=== PATIENT | male | born 1980 | race Caucasian/White ===

== ENCOUNTER → 2016-10-21 | Outpatient (REF) | payer OTHER ==
[2016-10-21 11:21] LABS: BASO % 0.5 % (0.0-1.0); EOS # 0.2 K/mm3 (0.0-0.50); EOS % 2.9 % (0.0-3.0); LARGE UNSTAINED CELL # 0.1 K/mm3 (0.0-0.4); LARGE UNSTAINED CELL % 1.3 % (0.0-4.0); LYMPH # 1.8 K/mm3 (1.5-4.5); LYMPH % 21.7 % (24.0-44.0); MEAN CORPUSCULAR HEMOGLOBIN 31.4 pg (27.0-33.0); MEAN CORPUSCULAR VOLUME 92.3 fl (80.0-96.0); MONO # 0.4 K/mm3 (0.0-0.8); MONO % 5.2 % (0.0-5.0); NEUTROPHILS # 5.4 K/mm3 (1.8-7.7); NEUTROPHILS % 68.4 % (36.0-66.0); PLATELET COUNT, AUTOMATED 247 k/mm3 (150-450); RED CELL DISTRIBUTION WIDTH 12.1 % (11.5-14.5); WHITE BLOOD COUNT 7.9 K/mm3 (4.0-10.0)
[2016-10-21 12:02] LABS: ALBUMIN 4.1 GM/DL (3.2-5.2); ALBUMIN/GLOBULIN RATIO 1.21 (1.00-1.93); ALKALINE PHOSPHATASE 83 U/L (45-117); ALT/SGPT 79 U/L (12-78); ANION GAP 8 MEQ/L (8-16); AST/SGOT 32 U/L (15-37); BILIRUBIN,TOTAL 0.6 MG/DL (0.2-1.0); BLOOD UREA NITROGEN 14 MG/DL (7-18); CALCIUM LEVEL 9.3 MG/DL (8.5-10.1); CARBON DIOXIDE LEVEL 26 MEQ/L (21-32); CHLORIDE LEVEL 103 MEQ/L (98-107); CHOLESTEROL LEVEL 238 MG/DL (<200); CREATININE FOR GFR 0.93 MG/DL (0.70-1.30); FREE T4 1.13 NG/DL (0.76-1.46); GLOMERULAR FILTRATION RATE > 60.0 (>60); GLUCOSE, FASTING 91 MG/DL (70-105); POTASSIUM SERUM 4.4 MEQ/L (3.5-5.1); SODIUM LEVEL 137 MEQ/L (136-145); TOTAL PROTEIN 7.5 GM/DL (6.4-8.2); TRIGLYCERIDES LEVEL 373 MG/DL (<150)
== END ==
LOC: M SFHCPLAZ 07:56
PROVIDERS: ATTEND Physician Assistant Medical
DX: I10 Essential (primary) hypertension (principal); E78.5 Hyperlipidemia, unspecified; E55.9 Vitamin D deficiency, unspecified

== ENCOUNTER 2017-03-21 12:41 | Emergency (ER) | payer OTHER ==
[~2017-03-21] VITALS: Ht 190.5 cm; Wt 118.2 kg
[2017-03-21] MEDS ORDERED: LISI40TAB PO (12:52)
[2017-03-21] MEDS ORDERED: VITA1CAP40 (12:52)
[2017-03-21] MEDS ORDERED: LIDOCAINE W/EPINEPHRINE 1% 20ML VIAL As Ordered ONE (12:59)
[2017-03-21] MEDS ORDERED: LIDOCAINE W/EPINEPHRINE 1% 20ML VIAL SC ONE (13:15)
[2017-03-21 14:10] VITALS: BP 157/79
== END 2017-03-21 14:11 | disposition home or self-care (01) ==
LOC: M ED 12:41
DX: S71.029A Laceration with foreign body, unspecified hip, initial encounter (principal); W22.8XXA Striking against or struck by other objects, initial encounter; Y92.019 Unspecified place in single-family (private) house as the place of occurrence of the external cause; Y93.89 Activity, other specified; Y99.8 Other external cause status; I10 Essential (primary) hypertension; E66.9 Obesity, unspecified; K70.0 Alcoholic fatty liver; Z79.899 Other long term (current) drug therapy

== ENCOUNTER → 2017-11-17 | Outpatient (REF) | payer OTHER ==
[2017-11-17 12:00] LABS: PTH INTACT 51.4 PG/ML (18.5-88.0); TOTAL 25(OH) VITAMIN D 31.7 NG/ML (30.0-100.0)
[2017-11-17 12:16] LABS: ALBUMIN 4.1 GM/DL (3.2-5.2); ALBUMIN/GLOBULIN RATIO 1.17 (1.00-1.93); ALKALINE PHOSPHATASE 73 U/L (45-117); ALT/SGPT 66 U/L (12-78); ANION GAP 7 MEQ/L (8-16); AST/SGOT 25 U/L (7-37); BILIRUBIN,TOTAL 0.5 MG/DL (0.2-1.0); BLOOD UREA NITROGEN 12 MG/DL (7-18); CALCIUM LEVEL 9.1 MG/DL (8.5-10.1); CARBON DIOXIDE LEVEL 27 MEQ/L (21-32); CHLORIDE LEVEL 106 MEQ/L (98-107); CHOLESTEROL LEVEL 235 MG/DL (<200); CHOLESTEROL RISK RATIO 6.527 (<5); CPK CREATINE PHOSPHOKINASE 163 U/L (39-308); CREATININE FOR GFR 0.87 MG/DL (0.70-1.30); FREE T4 1.02 NG/DL (0.76-1.46); GLOMERULAR FILTRATION RATE > 60.0 (>60); GLUCOSE, FASTING 85 MG/DL (70-100); HDL CHOLESTEROL 36 MG/DL (>40); LDL CHOLESTEROL 146.8 MG/DL (<100); NON-HDL-C 199 MG/DL; POTASSIUM SERUM 4.4 MEQ/L (3.5-5.1); SODIUM LEVEL 140 MEQ/L (136-145); THYROID STIMULATING HORMONE 0.882 uIU/ML (0.358-3.740); TOTAL PROTEIN 7.6 GM/DL (6.4-8.2); TRIGLYCERIDES LEVEL 261 MG/DL (<150)
== END ==
LOC: M SFHCPLAZ 09:06
DX: E55.9 Vitamin D deficiency, unspecified (principal); I10 Essential (primary) hypertension; E78.5 Hyperlipidemia, unspecified; E66.9 Obesity, unspecified
CPT/HCPCS: 82550

== ENCOUNTER → 2018-04-26 | Outpatient (REF) | payer OTHER ==
[2018-04-26 13:16] LABS: APPEARANCE, URINE CLEAR (CLEAR); BACTERIA, URINE AUTO NEGATIVE (NEGATIVE); BILIRUBIN, URINE AUTO NEGATIVE (NEGATIVE); BLOOD, URINE BLOOD NEGATIVE (NEGATIVE); COLOR, URINE YELLOW (YELLOW); GLUCOSE, URINE (UA) AUTO NEGATIVE (NEGATIVE); KETONE, URINE AUTO NEGATIVE (NEGATIVE); LEUKOCYTE ESTERASE, URINE AUTO 1+ (NEGATIVE); MUCUS, URINE SMALL (NEGATIVE); NITRITE, URINE AUTO NEGATIVE (NEGATIVE); PROTEIN, URINE AUTO NEGATIVE (NEGATIVE); RBC, URINE AUTO 0 /HPF (0-3); SQUAMOUS EPITHELIAL CELL UR AU 0 /HPF (0-6); UROBILINOGEN, URINE AUTO 0.2 mg/dL (0.0-2.0); WBC, URINE AUTO 3 /HPF (0-3)
[2018-04-26 13:42] LABS: MALB URINE SIEMENS 15.7 MG/L
[2018-04-26 13:46] LABS: ESTIMATED AVERAGE GLUCOSE 108 MG/DL (60-110); HEMOGLOBIN A1c 5.4 %; MAU/CREAT RATIO 7.9 MCG/MG (0.0-30.0)
[2018-04-26 13:50] LABS: ALBUMIN 3.9 GM/DL (3.2-5.2); ALBUMIN/GLOBULIN RATIO 1.18 (1.00-1.93); ALKALINE PHOSPHATASE 86 U/L (45-117); ALT/SGPT 60 U/L (12-78); ANION GAP 11 MEQ/L (8-16); AST/SGOT 28 U/L (7-37); BILIRUBIN,TOTAL 0.7 MG/DL (0.2-1.0); BLOOD UREA NITROGEN 16 MG/DL (7-18); C REACTIVE PROTEIN QUANTITATIV < 0.30 MG/DL (0.00-0.30); CALCIUM LEVEL 9.1 MG/DL (8.5-10.1); CARBON DIOXIDE LEVEL 24 MEQ/L (21-32); CHLORIDE LEVEL 104 MEQ/L (98-107); CHOLESTEROL LEVEL 235 MG/DL (<200); CHOLESTEROL RISK RATIO 6.184 (<5); CPK CREATINE PHOSPHOKINASE 243 U/L (39-308); GLOMERULAR FILTRATION RATE > 60.0 (>60); GLUCOSE, FASTING 92 MG/DL (70-100); HDL CHOLESTEROL 38 MG/DL (>40); LDL CHOLESTEROL 120 MG/DL (<100); NON-HDL-C 197 MG/DL; POTASSIUM SERUM 4.3 MEQ/L (3.5-5.1); SODIUM LEVEL 139 MEQ/L (136-145); TOTAL PROTEIN 7.2 GM/DL (6.4-8.2); TRIGLYCERIDES LEVEL 384 MG/DL (<150)
[2018-04-28 15:03] LABS: INSULIN LEVEL 14.9 uIU/mL (2.6-24.9)
== END ==
LOC: M SFHCPLAZ 08:22
DX: E78.5 Hyperlipidemia, unspecified (principal); R73.01 Impaired fasting glucose

== ENCOUNTER → 2018-12-08 | Outpatient (REF) | payer OTHER ==
[~2018-12-08] MED LIST: LISI40TA PO; VITA50005
[2018-12-08 12:42] LABS: ALBUMIN 3.8 GM/DL (3.2-5.2); ALT/SGPT 60 U/L (12-78); BILIRUBIN,TOTAL 0.6 MG/DL (0.2-1.0); BLOOD UREA NITROGEN 9 MG/DL (7-18); CARBON DIOXIDE LEVEL 27 MEQ/L (21-32); CHLORIDE LEVEL 104 MEQ/L (98-107); CHOLESTEROL LEVEL 167 MG/DL (<200); CHOLESTEROL RISK RATIO 4.282 (<5); CREATININE FOR GFR 0.84 MG/DL (0.70-1.30); GLOMERULAR FILTRATION RATE > 60.0 (>60); GLUCOSE, FASTING 89 MG/DL (70-100); HDL CHOLESTEROL 39 MG/DL (>40); LDL CHOLESTEROL 59 MG/DL (<100); NON-HDL-C 128 MG/DL; POTASSIUM SERUM 4.3 MEQ/L (3.5-5.1); SODIUM LEVEL 140 MEQ/L (136-145); TOTAL PROTEIN 7.3 GM/DL (6.4-8.2); TRIGLYCERIDES LEVEL 347 MG/DL (<150)
[2018-12-08 12:44] LABS: PTH INTACT 61.6 PG/ML (18.5-88.0); TOTAL 25(OH) VITAMIN D 18.5 NG/ML (30.0-100.0)
[2018-12-08 13:38] LABS: HEMOGLOBIN A1c 5.9 %
== END ==
LOC: M SFHCPLAZ 09:10
PROVIDERS: ATTEND Family Medicine
DX: E78.5 Hyperlipidemia, unspecified (principal); R73.01 Impaired fasting glucose; Z23 Encounter for immunization; E55.9 Vitamin D deficiency, unspecified

== ENCOUNTER → 2019-06-20 | Outpatient (CLI) | payer OTHER ==
[2019-06-20 14:34] LABS: HEMOGLOBIN A1c 5.6 %
[2019-06-20 14:37] LABS: ALBUMIN 4.3 GM/DL (3.2-5.2); ALT/SGPT 73 U/L (12-78); BILIRUBIN,TOTAL 0.6 MG/DL (0.2-1.0); BLOOD UREA NITROGEN 12 MG/DL (7-18); CARBON DIOXIDE LEVEL 27 MEQ/L (21-32); CHLORIDE LEVEL 104 MEQ/L (98-107); CHOLESTEROL LEVEL 169 MG/DL (<200); CHOLESTEROL RISK RATIO 3.755 (<5); CREATININE FOR GFR 0.89 MG/DL (0.70-1.30); GLOMERULAR FILTRATION RATE > 60.0 (>60); GLUCOSE, FASTING 84 MG/DL (70-100); HDL CHOLESTEROL 45 MG/DL (>40); LDL CHOLESTEROL 87 MG/DL (<100); NON-HDL-C 124 MG/DL; POTASSIUM SERUM 4.3 MEQ/L (3.5-5.1); SODIUM LEVEL 137 MEQ/L (136-145); TOTAL PROTEIN 7.6 GM/DL (6.4-8.2); TRIGLYCERIDES LEVEL 185 MG/DL (<150)
[2019-06-20 14:43] LABS: TOTAL 25(OH) VITAMIN D 20.9 NG/ML (30.0-100.0)
[2019-06-20 14:44] LABS: PTH INTACT 81.9 PG/ML (18.5-88.0)
== END ==
LOC: M PLALAB 10:25
PROVIDERS: ATTEND Family Medicine
DX: E78.5 Hyperlipidemia, unspecified (principal); R73.01 Impaired fasting glucose; Z23 Encounter for immunization; E55.9 Vitamin D deficiency, unspecified

== ENCOUNTER → 2019-11-30 | Outpatient (REF) | payer OTHER ==
[2019-11-30 10:07] LABS: BASO % 0.4 % (0.0-1.0); EOS # 0.3 10^3/uL (0.0-0.5); EOS % 4.2 % (0.0-3.0); HEMATOCRIT 49.4 % (42.0-52.0); HEMOGLOBIN 16.8 g/dl (13.5-17.5); LYMPH # 1.8 10^3/uL (1.5-5.0); LYMPH % 26.2 % (24.0-44.0); MEAN CORPUSCULAR HEMOGLOBIN 31.2 pg (27.0-33.0); MEAN CORPUSCULAR VOLUME 91.8 fl (80.0-96.0); MONO # 0.5 10^3/uL (0.0-0.8); MONO % 7.7 % (0.0-5.0); NEUTROPHILS # 4.2 10^3/uL (1.5-8.5); NEUTROPHILS % 61.1 % (36.0-66.0); PLATELET COUNT, AUTOMATED 282 10^3/uL (150-450); RED BLOOD COUNT 5.38 10^6/uL (4.30-6.10); WHITE BLOOD COUNT 6.8 10^3/uL (4.0-10.0)
[2019-11-30 10:12] LABS: ALT/SGPT 91 U/L (12-78); BILIRUBIN,TOTAL 0.5 MG/DL (0.2-1.0); BLOOD UREA NITROGEN 14 MG/DL (7-18); CALCIUM LEVEL 9.2 MG/DL (8.5-10.1); CARBON DIOXIDE LEVEL 28 MEQ/L (21-32); CHLORIDE LEVEL 103 MEQ/L (98-107); CREATININE FOR GFR 0.89 MG/DL (0.70-1.30); GLOMERULAR FILTRATION RATE > 60.0 (>60); GLUCOSE, FASTING 97 MG/DL (70-100); POTASSIUM SERUM 4.1 MEQ/L (3.5-5.1); SODIUM LEVEL 138 MEQ/L (136-145); TOTAL PROTEIN 7.7 GM/DL (6.4-8.2)
[2019-11-30 10:19] LABS: VITAMIN B12 LEVEL 851 PG/ML (247-911)
[2019-11-30 10:47] LABS: HEMOGLOBIN A1c 5.1 %
== END ==
LOC: M SFHCPLAZ 08:12
PROVIDERS: ATTEND Family Medicine
DX: K70.0 Alcoholic fatty liver (principal); I10 Essential (primary) hypertension; R73.01 Impaired fasting glucose

== ENCOUNTER → 2020-06-15 | Outpatient (REF) | payer OTHER ==
[2020-06-15 12:42] LABS: APPEARANCE, URINE CLEAR (CLEAR); BACTERIA, URINE AUTO NEGATIVE (NEGATIVE); BILIRUBIN, URINE AUTO NEGATIVE (NEGATIVE); BLOOD, URINE BLOOD NEGATIVE (NEGATIVE); COLOR, URINE YELLOW (YELLOW); GLUCOSE, URINE (UA) AUTO NEGATIVE (NEGATIVE); KETONE, URINE AUTO NEGATIVE (NEGATIVE); LEUKOCYTE ESTERASE, URINE AUTO NEGATIVE (NEGATIVE); NITRITE, URINE AUTO NEGATIVE (NEGATIVE); PROTEIN, URINE AUTO NEGATIVE (NEGATIVE); RBC, URINE AUTO 0 /HPF (0-3); SPECIFIC GRAVITY URINE AUTO 1.017 (1.002-1.035); SQUAMOUS EPITHELIAL CELL UR AU 0 /HPF (0-6); UROBILINOGEN, URINE AUTO 0.2 mg/dL (0.0-2.0); WBC, URINE AUTO 0 /HPF (0-3)
[2020-06-15 12:45] LABS: BASO % 0.5 % (0.0-1.0); EOS # 0.3 10^3/uL (0.0-0.5); EOS % 3.9 % (0.0-3.0); HEMATOCRIT 49.6 % (42.0-52.0); HEMOGLOBIN 16.6 g/dl (13.5-17.5); LYMPH # 1.7 10^3/uL (1.5-5.0); LYMPH % 23.7 % (24.0-44.0); MEAN CORPUSCULAR HGB CONC 33.5 g/dl (32.0-36.5); MEAN CORPUSCULAR VOLUME 92.5 fl (80.0-96.0); MONO # 0.6 10^3/uL (0.0-0.8); NEUTROPHILS # 4.7 10^3/uL (1.5-8.5); NEUTROPHILS % 63.4 % (36.0-66.0); PLATELET COUNT, AUTOMATED 281 10^3/uL (150-450); RED BLOOD COUNT 5.36 10^6/uL (4.30-6.10); WHITE BLOOD COUNT 7.4 10^3/uL (4.0-10.0)
[2020-06-15 13:14] LABS: ALT/SGPT 86 U/L (12-78); BILIRUBIN,TOTAL 0.5 MG/DL (0.2-1.0); BLOOD UREA NITROGEN 15 MG/DL (7-18); CALCIUM LEVEL 9.2 MG/DL (8.5-10.1); CARBON DIOXIDE LEVEL 28 MEQ/L (21-32); CHLORIDE LEVEL 104 MEQ/L (98-107); CREATININE FOR GFR 0.89 MG/DL (0.70-1.30); GLOMERULAR FILTRATION RATE > 60.0 (>60); GLUCOSE, FASTING 98 MG/DL (70-100); POTASSIUM SERUM 4.6 MEQ/L (3.5-5.1); SODIUM LEVEL 137 MEQ/L (136-145); TOTAL PROTEIN 7.3 GM/DL (6.4-8.2)
[2020-06-15 13:20] LABS: PTH INTACT 43.3 PG/ML (18.5-88.0); TOTAL 25(OH) VITAMIN D 40.4 NG/ML (30.0-100.0)
[2020-06-15 13:21] LABS: MALB URINE SIEMENS 13.5 MG/L
[2020-06-15 13:23] LABS: HEMOGLOBIN A1c 5.5 %
[2020-06-19 06:07] LABS: INSULIN LEVEL 17.4 uIU/mL (2.6-24.9)
== END ==
LOC: M PLALAB 08:01
PROVIDERS: ATTEND Family Medicine
DX: I10 Essential (primary) hypertension (principal); E55.9 Vitamin D deficiency, unspecified; R73.01 Impaired fasting glucose

== ENCOUNTER 2020-08-02 10:11 | Emergency (ER) | payer OTHER ==
[~2020-08-02] VITALS: Ht 190.5 cm; Wt 125.8 kg
[~2020-08-02 10:11] MED LIST changes: -LISI40TA PO; +LISI40TA4 PO
--- OUTSIDE RECORDS SUMMARY | 2020-08-02 10:21 | CCD ---
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 Active 5032 5005 Problem Alcohol use disorder F10.99 Active 73677163 Problem IFG (impaired fasting glucose) R73.01 Active 3 14148192 Problem Hypertension I10 Active 40978429 Problem Vitamin D deficiency E55.9 Active 56498418 Problem Obesity (BMI 30.0-34.9) E66.9 Active 23742673 6673330 Problem Hyperlipidemia E78.5 Active 14771216 Problem DJD (degenerative joint disease), lumbar M47.816 Active 815218947 Problem Allergic rhinitis J30.9 Active 31242175 ALLERGIES Allergen (clinical drug ingredient) Drug/Non Drug Allergy do cumented on EMR Reaction Allergy Type Onset Date Status pollen allergies Non Drug Allergy Active cats allergies Non Drug Allergy Active Cherries scratchy throat Non Drug Allergy Act yumiko grass allergies Non Drug Allergy Active dust allergies Non Drug Allergy Active smoke allergies Non Drug Allergy Active ENCOUNTERS from 1979 to 2020-06-29 Encounter Location Date Provider Diagnosis [address] [address] 10 Dec, 2 020 Dov Vila Generalized pruritus L29.9 ; IFG (impaired fasting glucose) R73.01 ; Hyperlipidemia E78.5 ; Hypertension I10 ; Encounter for immunization Z23 ; DJD (degenerative joint disease), lumbar M47.816 ; Obesity (BMI 30.0-34.9) E66.9 ; Vitamin D deficiency E55.9 ; Alcohol induced fatty liver K70.0 ; Allergic rhinitis J30.9 and Alcohol use disorder F10.99 IMMUNIZATIONS Vaccine Route Administration Date Status Influenza (18 yrs & older) Flublok IM Intramuscular Jun 21, 2019 Administered Influenza (6mo & up) Fluzone IM Intramuscular May 06, 2018 Ad ministered Influenza (6mo & up) Fluzone IM Intramuscular May 18, 2017 Ad ministered TDAP 0.5mL (Boostrix) IM Intramuscular May 30, 2010 Administe red Influenza (6mo & up) Fluzone Unknown November 04, 2016 Pen ding Influenza (6mo & up) Fluzone IM Intramuscular Apr 29, 2016 Ad ministered Influenza (18 yrs & older) Flublok IM Intramuscular Jun 21, 2020 Administered Influenza (6mo & up) Fluzone IM Intramuscular Apr 10, 2015 Ad ministered Influenza (6mo & up) Fluzone IM Intramuscular Apr 06, 2014 Ad ministered Influenza (6mo & up) Fluzone IM Intramuscular May 30, 2010 Ad ministered SOCIAL HISTORY Tobacco Use: Social History Observation Description Date Details (start date - stop date) Sex Assigned At : Social History Observation Description Sex Assigned At Unknown Education: Question Answer Notes Level of Education: Graduate Audit Question Answer Notes Total Score: 9 Interpretation: Simple Advice Language: Question Answer Notes Languages spoken: Armenian Taoist: Question Answer Notes Taoist 08 [employer] Domestic Violence: Question Answer Notes Status: none Sexual Hx: Question Answer Notes Had sex in the last 12 months (vaginal, oral, or anal)? Yes Have you ever had an STD? Yes Prevention Strategies discussed: Other with Women only Use protection? No Drug and Alcohol Question Answer Notes Total Score: 0 Interpretation: No problems reported Alcohol Screening: Question Answer Notes Did you have a drink containing alcohol in the past year? Ye s Points 2 Interpretation Negative How many drinks did you have on a typica l day when you were drinking in the past year? 3 or 4 (1 point) How often did you have a drink containing alcohol in t he past year? Monthly or less (1 point) BMI Care Goal Follow-Up Question Answer Notes Above Normal BMI Follow-Up Dietary management educatio n, guidance, and counseling Tobacco Use: Question Answer Notes Are you a: never smoker REASON FOR REFERRAL No Information VITAL SIGNS Weight 278.2 lbs Jun, Height 73 in Jun, BMI 36.70 kg/m2 Jun, Heart Rate 97 /min Jun, Respiratory Rate 18 /min Jun, Temperature 97.7 degrees Fahrenheit Jun, Oximetry 99% Jun, Blood pressure systolic 130 mm Hg Jun, Blood pressure diastolic 90 mm Hg Jun, MEDICATIONS Medication SIG (Take, Route, Frequency, Duration) Notes Start Da te End Date Status Triamcinolone Acetonide 0.5 % 1 application Externally BID for 3 0 Days Jun, Active Atorvastatin Calcium 20 MG 1 tablet Orally Once a day for 90 Active Ergocalciferol 15993 UNIT 1 capsule Orally every 7 days for 90 day(s) Active Atorvastatin Calcium 20 MG 1 tablet Orally Once a day for 30 day(s) Active Lisinopril 40 MG 1 tablet Orally Once a day for 90 Active Ergocalciferol 10829 UNIT 1 capsule Orally every 7 days for 84 Active Doxepin HCl 50 MG 1 tab Orally at bedtime for 30 Days 10 D 2019 Active Lisinopril 40 MG 1 tablet Orally Once a day for 90 day(s) Active Multi For Him - as directed Orally A ctive PROCEDURES from 1979 to 2020-06-29 Procedure Date Ordered Result Body Site Immunization: Flublok Quadrivalent (18 years & older) 0.5mL IM (Influenza) 2020-06-21 N/A RESULTS No Results REASON FOR VISIT 05 months followup MEDICAL (GENERAL) HISTORY Type Description Date Medical History hypertension, essential Medical History allergic rhinitis Medical History tonsillar hypertrophy, bilateral Medical History alcoholic fatty liver-10/2011 normal RUQ US, 07/2012 FS 2 9 Medical History obesity Medical History hyperlipidemia 2B Surgical History jaw surgery, corrective-[place] 1996 Surgical History adenoidectomy 1995 Surgical History wisdom teeth extract 1995 Hospitalization History none Goals Section No Information Health Concerns No Information MEDICAL EQUIPMENT No Information MENTAL STATUS No Information FUNCTIONAL STATUS No Information ASSESSMENTS Encounter Date Diagnosis Assessment Notes Treatment Notes Treatm ent Clinical Notes Jun, Generalized pruritus (ICD-10 - L29.9) favor LSC /NE 06/21/20 doxepin 50 QHS c TA 0.5 cr BID , avoid scratching/use ice c update cb in 10-14D (few scattered 3-4 mm thin plaques) Contingency: push dexepin, extend BW start of 10/2019 puriritis s hives-mainly lateral arm, anterior abdomen, B posterior thighs 2W prior changed to hypoallergenic soap, detergent Jun, IFG (impaired fasting glucose) (ICD-10 - R73.01) Continue ADA diet/weight loss no FH DM 06/15/20 5.5 (98, 17) 11/2018 5.9 04/2018 5.4, c COOKIE-IR 3 (92, 15) 02/2013 5.2 07/2012 5.4 02/2012 A1C 5.7 06/15/20 9 04/2018 8 07/2012 GRACIELA/creatinine 6 Jun, Hyperlipidemia (ICD-10 - E78.5) 06/2019 87/45/185 on atorva 20 04/2018 120/38/384, 243, <0.3 on atorva 20 (but missed atorva 2W) 11/2017 147/36/261, CPK 163; therefore, started atorva 20 10/2015 117/37/391 down to 7 servings 3x qW 03/2015 non 212/34/548, CPK 113 back on 50 beers qW, increased weight, minimal exercise; therefore will start dietary/exercise change 09/2014 116/41/370, CRP <0.3 02/2014 non 197/39/447 back drinking EthOH 10-12 beer qhs 08/2013 128/35/329, LDL size 20.0 with 3.1% 10Y ASCD risk 02/2013 116/42/342 07/2012 non HDL 217/47/438, LDL size 19.7!-start dietary therapy with increased aerobic activity and reduce EtoH, if still elevated at f/u Lipitor 11/2017 0.9, 1.0 02/2014 0.7 05/2010 TSH of 1.2 Jun, Hypertension (ICD-10 - I10) Stable on lisin 40 qAM (long--standing eleveation c EthOH use) 11/30/19 4.1, 0.9, hgb stable 16.8, 92 06/2019 4.3, 0.9 04/2018 4.3, 0.9 10/2015 4.2, 0.9 06/20/2019 EKG NSR 73 no previous to compare Jun, Encounter for immunization (ICD-10 - Z23) Jun, DJD (degenerative joint disease), lumbar (ICD-10 - M47.816) Stable home PT 10/2015 gave HO for home PT for chronic recurrent flares Contingency: xray, CANI Jun, Obesity (BMI 30.0-34.9) (ICD-10 - E66.9) Encouraged weight loss Jun, Vitamin D deficiency (ICD-10 - E55.9) 06/15/20 40, 9.2, 43 06/2019 21, 9.0, 82; therefore, D2 50K q7D 11/2017 32, 9.1, 51 on D2 50K q7D 09/2015 14, 8.9, PTH 40; therefore restarted again Jun, Alcohol induced fatty liver (ICD-10 - K70.0) Encouraged to dc EthOH 06/15/20 31/86/95/0.5 06/15/20 DE LA PAZ FS: F0/S3/N1 Jun, Allergic rhinitis (ICD-10 - J30.9) Stable on cet 10 prn Jun, Alcohol use disorder (ICD-10 - F10.99) Chronic relapses precipitated by work-drinks at home alone Patient defers Campral and ReVia-defers for now and defers counseling-has done s benefit per him 03/2015 offered medication +/- counseling-patient to c/b if he wants to do Jun, Other 11/30/19 B12 851 , r36/1.3 PLAN OF TREATMENT Medication Medication Name Sig Start Date Stop Date Triamcinolone Acetonide 0.5 % 1 application Externally BID f or 30 Days Jun, Doxepin HCl 50 MG 1 tab Orally at bedtime for 30 Days Jun, Atorvastatin Calcium 20 MG 1 tablet Orally Once a day for 30 day (s) Lisinopril 40 MG 1 tablet Orally Once a day for 90 day(s) Ergocalciferol 53572 UNIT 1 capsule Orally every 7 days for 90 d ay(s) Treatment Notes Assessment Notes Clinical Notes Generalized pruritus favor LSC /NE doxepin 50 QHS c TA 0.5 cr BID , avoid scratching/use ice c update cb in 10-14D (few scattered 3-4 mm thin plaques)Contingency: push dexepin, extend BWstart of 10/2019 puriritis s hives- mainly lateral arm, anterior abdomen, B posterior [id number] prior changed to hypoallergenic soap, detergent IFG (impaired fasting glucose) Continue ADA diet/weight lossno FH DM108/16/19 5.5 (98, 17)11/2018 5.91 5.4, c COOKIE-IR 3 (92, 15)02/2013 5. 5. A1C 5.712/10/30 91 GRACIELA/creatinine 6 Hyperlipidemia 06/2019 87/45/185 on atorva 120/38/384, 243, <0.3 on atorva (but missed atorva 2W)11/2017 147/36/261, CPK 163; therefore, started atorva 117/37/391 down to 7 servings 3x qW03/2015 non 212/34/548, CPK 113 back on 50 beers qW, increased weight, minimal exercise; therefore will start dietary/exercise change09/2014 116/41/370, CRP <0. non 197/39/447 back drinking EthOH 10-12 beer qhs08/2013 128/35/329, LDL size 20.0 with 3.1% 10Y ASCD risk02/2013 116/ non HDL 217/47/438, LDL size 19.7!-start dietary therapy with increased aerobic activity and reduce EtoH, if still elevated at f/u Lipitor11/2017 0.9, 1.02/2014 0.7107/2009 TSH of 1.2 Hypertension Stable on lisin 40 q AM (long--standing eleveation c EthOH use)11/30/19 4.1, 0.9, hgb stable 16.8, 9206/2019 4.3, 0.91 4.3, 0. 4.2, 0.912/03/2019 EKG NSR 73 no previous to compare DJD (degenerative joint disease), lumbar Stable home PT10/2015 gave HO for home PT for chronic recurrent flaresContingency: xray, CANI Obesity (BMI 30.0-34.9) Encouraged weigh t loss Vitamin D deficiency 06/15/20 40, 9.2, 43 06/2019 21, 9.0, 82; therefore, D2 50K q7D11/2017 32, 9.1, 51 on D2 50K q7D3/2015 14, 8.9, PTH 40; therefore restarted again Alcohol induced fatty liver Encouraged t o dc EthOH12 31/86/95/0.512/10/30 DE LA PAZ FS: F0/S3/N1 Allergic rhinitis Stable on cet 10 prn Alcohol use disorder Chronic relapses pr ecipitated by work-drinks at home alonePatient defers Campral and ReVia-defers for now and defers counseling-has done s benefit per him03/2015 offered medication +/- counseling-patient to c/b if he wants to do Future Test Test Name Order Date HEMOGLOBIN A1c [id number] INSULIN LEVEL [id number] LIPID PANEL (CARDIAC RISK) [id number] C REACTIVE PROTEIN QUANTITATIV (At [facility]) 86809408 CPK CREATINE PHOSPHOKINASE 57572137 FREE T4 & TSH PANEL [id number] CBC with Differential 75579073 PT & APTT [id number] ALPHA FETOPROTEIN TUMOR QUANT [id number] Next Appt Details 5 Months, BW 1W prior Reason: Provider Name:Dov Vila, 2020-11-26 0 8:15:00 AM, [address] [place], [address], Insurance Providers Payer Name Payer Address Payer Phone Insured Name Patient Relati onship to Insured Coverage Start Date Coverage End Date [facility] [id number] [facility] [id number] [phone] DANE PIÑA self
--- OUTSIDE RECORDS SUMMARY | 2020-08-02 10:21 | CCD ---
Author Author [facility] Organization [facility] Address Unknown Phone Unavailable Support Name Relationship Address Phone WATNPOLICE Next Of Kin [address] [place] [address] [employer]ANA POLICE DEPT Next Of Kin [address] [place] [address] NURIS PIÑA Next Of Kin [address] [place] [address] Nuris Piña ECON [address] [place] [address] [phone] Re-disclosure Warning The records that you are about to access may contain information from federally-assisted alcohol or drug abuse programs. If such information is present, then the following federally mandated warning applies: This information has been disclosed to you from records protected by federal confidentiality rules (42 CFR part 2). The federal rules prohibit you from making any further disclosure of this information unless further disclosure is expressly permitted by the written consent of the person to whom it pertains or as otherwise permitted by 42 CFR part 2. A general authorization for the release of medical or other information is NOT sufficient for this purpose. The Federal rules restrict any use of the information to criminally investigate or prosecute any alcohol or drug abuse patient.The records that you are about to access may contain highly sensitive health information, the redisclosure of which is protected by Article 27-F of the [facility] Public Health law. If you continue you may have access to information: Regarding HIV / AIDS; Provided by facilities licensed or operated by the [facility] Office of Mental Health; or Provided by the [facility] Office for People With Developmental Disabilities. If such information is present, then the following [facility] mandated warning applies: This information has been disclosed to you from confidential records which are protected by state law. State law prohibits you from making any further disclosure of this information without the specific written consent of the person to whom it pertains, or as otherwise permitted by law. Any unauthorized further disclosure in violation of state law may result in a fine or fpc sentence or both. A general authorization for the release of medical or other information is NOT sufficient authorization for further disc losure. Allergies and Adverse Reactions Type Description Substance Reaction Status Data Source(s ) smoke smoke smoke allergies Active eCW1 ([facility]) pollen pollen pollen allergies Active eCW1 ([facility]) grass grass grass allergies Active eCW1 ([facility]) cats cats cats allergies Active eCW1 ([facility]) Cherries Cherries Cherries scratchy throat Active eCW1 ([facility]) dust dust dust allergies Active eCW1 ([facility]) pollen pollen pollen allergies Active eCW1 ([facility]) grass grass grass allergies Active eCW1 ([facility]) Cherries Cherries Cherries scratchy throat Active eCW1 ([facility]) cats cats cats allergies Active eCW1 ([facility]) dust dust dust allergies Active eCW1 ([facility]) smoke smoke smoke allergies Active eCW1 ([facility]) Encounters Encounter Providers Location Date Indications Data Source(s ) Outpatient [address] [facility] [address] 06/21/2020 12:00:00 AM EST eCW1 ([facility]) [facility] [address] [place] [address] 12/01/2019 12:00:00 AM EDT eCW1 ([facility]) [facility] [address] [place] [address] 11/30/2019 12:00:00 AM EDT eCW1 ([facility]) [facility] [address] [place] [address] 11/18/2019 12:00:00 AM EDT eCW1 ([facility]) [facility] [address] [place] [address] [place] [address] 06/30/2019 12:00:00 AM EST eCW1 ([facility]) [facility] [address] [place] [place] [address] 06/30/2019 12:00:00 AM EST eCW1 ([facility]) [facility] [address] [place] [address] 06/21/2019 12:00:00 AM EST eCW1 ([facility]) [facility] [place] [address] [place] [address] 06/16/2019 12:00:00 AM EST eCW1 ([facility]) [facility] [address] [place] [address] 06/14/2019 12:00:00 AM EST eCW1 ([facility]) Immunizations Vaccine Date Status Description Data Source(s) influenza, recombinant, quadrIvalent,injectable, prese rvative free 06/21/2020 05:46:00 PM EST completed eCW1 [facility] influenza, recombinant, quadrIvalent,injectable, prese rvative free 06/21/2019 05:13:00 PM EST completed eCW1 ([facility]) influenza, recombinant, quadrIvalent,injectable, prese rvative free 06/21/2019 05:13:00 PM EST completed eCW1 ([facility]) Medications Medication Brand Name Start Date Product Form Dose Route Admi nistrative Instructions Pharmacy Instructions Status Indications Reaction Description Data Source(s) Triamcinolone Acetonide 5 MG/ML Topical Cream Triamcin olone Acetonide 0.5 % Triamcinolone Acetonide 0.5 % 06/21/2020 12:00:00 AM EST 1.0 {appli cation} active Triamcinolone Acetonide 0 .5 % eCW1 ([facility]) Doxepin Hydrochloride 50 MG Oral Capsule Doxepin HCl 50 MG D oxepin HCl 50 MG 06/21/2020 12:00:00 AM EST active Doxepin HCl 50 MG eCW1 ([facility]) Doxepin Hydrochloride 50 MG Oral Capsule Doxepin HCl 50 MG D oxepin HCl 50 MG 12/01/2019 12:00:00 AM EDT active 1 cap eCW1 ([facility]) Triamcinolone Acetonide 5 MG/ML Topical Cream Triamcin olone Acetonide 0.5 % Triamcinolone Acetonide 0.5 % 12/01/2019 12:00:00 AM EDT active 1 application eCW1 ([facility]) levocetirizine dihydrochloride 5 MG Oral Tablet Levocetirizine Dihydrochloride 5 MG Levocetirizine Dihydrochloride 5 MG 12/01/2019 12:00:00 AM EDT active 1 tablet in the evening eCW1 ([facility]) Permethrin 50 MG/ML Topical Cream Permethrin 5 % Permethrin 5 % 11/18/2019 12:00:00 AM EDT active 1 applic ation eCW1 ([facility]) Insurance Providers Payer name Policy type / Coverage type Policy ID Covered constitution party ID Covered constitution party's relationship to preciado Policy Preciado Plan Information [facility] [id number] ANSI-Commercial [id number] ANSI-Commercial [id number] ANSI-Commercial [id number] ANSI-Commercial [id number] ANSI-Commercial [id number] ANSI-Commercial [id number] ANSI-Commercial [id number] ANSI-Commercial [id number] ANSI-Commercial [id number] ANSI-Commercial [id number] ANSI-Commercial [id number] ANSI-Commercial [id number] [facility] [id number] SP [id number] [facility] [id number] SP [id number] Surgeries/Procedures Procedure Description Date Indications Data Source(s) Immunization: Flublok Quadrivalent (18 years & older) 0.5mL IM (Influenza) 06/21/2020 12:00:00 AM EST eCW1 ([facility]) EKG- ALL NON MCR/TRI PAYERS 06/21/2019 12:00:00 AM EST eCW1 ([facility]) RIV4 VACC RECOMBINANT DNA IM 06/21/2019 12:00:00 AM ES T eCW1 ([facility]) IMMUNIZATION ADMIN 06/21/2019 12:00:00 AM EST eCW1 ([facility]) Social History Code Duration Value Status Description Data Source(s ) Smoking 06/21/2020 12:00:00 AM EST UNK completed eCW1 ([facility]) Vital Signs ID Date Data Source UNK Name Value Range Interpretation Code Description Data Source(s) Diastolic blood pressure 90 mm[Hg] 90 mm[Hg] eCW1 ([facility]) Systolic blood pressure 130 mm[Hg] 130 mm[Hg] e CW1 ([facility]) Body temperature 97.7 [degF] 97.7 [degF] eCW1 ( [facility]) Respiratory rate 18 /min 18 /min eCW1 ([facility]) Heart rate 97 /min 97 /min eCW1 ([facility]) Body mass index (BMI) [Ratio] 36.70 kg/m2 36.70 kg/m2 eCW1 ([facility]) Body height 73 [in_i] 73 [in_i] eCW1 ([facility]) Body weight 278.2 [lb_av] 278.2 [lb_av] eCW1 ([facility]) Diastolic blood pressure 78 mm[Hg] 78 mm[Hg] eCW1 ([facility]) Systolic blood pressure 130 mm[Hg] 130 mm[Hg] e CW1 ([facility]) Body temperature 98.7 [degF] 98.7 [degF] eCW1 ( [facility]) Respiratory rate 18 /min 18 /min eCW1 ([facility]) Heart rate 109 /min 109 /min eCW1 ([facility]) Body mass index (BMI) [Ratio] 35.28 kg/m2 35.28 kg/m2 eCW1 ([facility]) Body height 73 [in_us] 73 [in_us] eCW1 ([facility]) Body weight Measured 267.4 [lb_av] 267.4 [lb_av ] eCW1 ([facility]) Diastolic blood pressure 82 mm[Hg] 82 mm[Hg] eCW1 ([facility]) Systolic blood pressure 128 mm[Hg] 128 mm[Hg] e CW1 ([facility]) Body temperature 98.4 [degF] 98.4 [degF] eCW1 ( [facility]) Respiratory rate 18 /min 18 /min eCW1 ([facility]) Heart rate 98 /min 98 /min eCW1 ([facility]) Body mass index (BMI) [Ratio] 35.75 kg/m2 35.75 kg/m2 eCW1 ([facility]) Body height 73 [in_us] 73 [in_us] eCW1 ([facility]) Body weight Measured 271 [lb_av] 271 [lb_av] eC W1 ([facility]) Patient Treatment Plan of Care Planned Activity Planned Date Details Description Data Source (s) Doxepin Hydrochloride 50 MG Oral Capsule 06/21/2020 12:00:00 AM EST eCW1 ([facility]) Triamcinolone Acetonide 5 MG/ML Topical Cream 06/21/2020 12:00:00 A M EST eCW1 ([facility]) Doxepin Hydrochloride 50 MG Oral Capsule 12/01/2019 12:00:00 AM EDT eCW1 ([facility]) levocetirizine dihydrochloride 5 MG Oral Tablet 12/01/2019 12:00:00 AM EDT eCW1 ([facility]) Triamcinolone Acetonide 5 MG/ML Topical Cream 12/01/2019 12:00:00 A M EDT eCW1 ([facility]) Permethrin 50 MG/ML Topical Cream 11/18/2019 12:00:00 AM EDT eCW1 ([facility])
[2020-08-02] MEDS ORDERED: ATOR1TAB21 (10:25)
[2020-08-02] MEDS ORDERED: DUO (10:25)
[2020-08-02] MEDS ORDERED: ACET-897 PO (10:25)
[2020-08-02] MEDS ORDERED: NS 1,000 ML IV ONE (11:15)
--- NOTE | 2020-08-02 11:32 | REP ---
INDICATION: chest pain, COVID+, tachycardia COMPARISON: 04/06/2010 TECHNIQUE: Portable AP view of the chest FINDINGS: The mediastinum and cardiac silhouette are stable and within normal limits for portable technique. The lung perez are relatively clear and without focal consolidation, effusion, or pneumothorax. However, very subtle right lower lobe airspace disease cannot definitively be excluded and should be correlated with auscultation. Skeletal structures are intact. IMPRESSION: No definite consolidation. However subtle early right lower lobe airspace disease cannot be excluded. <Electronically signed by Skyler Lemons > 08/02/20 1127
[2020-08-02] MEDS ORDERED: IBUPROFEN 800 MG TAB PO ONE (11:45)
--- OUTSIDE RECORDS SUMMARY | 2020-08-02 12:16 | CCD ---
Author Author [facility] Organization [facility] Address Unknown Phone Unavailable Support Name Relationship Address Phone WATNPOLICE Next Of Kin [address] [place] [address] [employer] Next Of Kin [address] [place] [address] NURIS PIÑA Next Of Kin [address] [place] [address] Nuris Piña ECON [address] [place] [address] [phone] Re-disclosure Warning The records that you are [...] is protected by Article 27-F of the [facility] Public Health law. If you continue you may have access to information: Regarding HIV / AIDS; Provided by facilities licensed or operated by the [facility] Office of Mental Health; or Provided by the [facility] Office for People With Developmental Disabilities. If such information is present, then the following [facility] mandated warning applies: This information has been [...] law may result in a fine or alf sentence or both. A general authorization for the release of medical or other information is NOT sufficient authorization for further disc losure. Allergies and Adverse Reactions Type Description Substance Reaction Status Data Source(s ) smoke smoke smoke allergies Active eCW1 ([facility]) pollen pollen pollen allergies Active eCW1 ([facility]) grass grass grass allergies Active eCW1 ([facility]) cats cats cats allergies Active eCW1 ([facility]) Cherries Cherries Cherries scratchy throat Active eCW1 ([facility]) dust dust dust allergies Active eCW1 ([facility]) pollen pollen pollen allergies Active eCW1 ([facility]) grass grass grass allergies Active eCW1 ([facility]) Cherries Cherries Cherries scratchy throat Active eCW1 ([facility]) cats cats cats allergies Active eCW1 ([facility]) dust dust dust allergies Active eCW1 ([facility]) smoke smoke smoke allergies Active eCW1 ([facility]) Encounters Encounter Providers Location Date Indications Data Source(s ) Outpatient [address] [facility] [id number] 06/21/2020 12:00:00 AM EST eCW1 ([facility]) [facility] [address] [place] [phone] 12/01/2019 12:00:00 AM EDT eCW1 ([facility]) [facility] [address] [place] [phone] 11/30/2019 12:00:00 AM EDT eCW1 ([facility]) [facility] [address] [place] [phone] 11/18/2019 12:00:00 AM EDT eCW1 ([facility]) [facility] [address] [place] [address] [place] [phone] 06/30/2019 12:00:00 AM EST eCW1 ([facility]) [facility] [address] [facility] [address] 06/30/2019 12:00:00 AM EST eCW1 ([facility]) [facility] [address] [facility] [address] 06/21/2019 12:00:00 AM EST eCW1 ([facility]) [facility] [place] [address] [facility] [address] 06/16/2019 12:00:00 AM EST eCW1 ([facility]) [facility] [place] [facility] [address] 06/14/2019 12:00:00 AM EST eCW1 ([facility]) Immunizations Vaccine Date Status Description Data Source(s) influenza, recombinant, quadrIvalent,injectable, prese rvative free 06/21/2020 05:46:00 PM EST completed eCW1 ([facility]) influenza, recombinant, quadrIvalent,injectable, prese rvative free 06/21/2019 05:13:00 PM EST completed eCW1 ([facility]) influenza, recombinant, quadrIvalent,injectable, prese rvative free 06/21/2019 05:13:00 PM EST completed eCW1 ([facility]) Medications Medication Brand Name Start Date Product Form Dose Route Admi nistrative Instructions Pharmacy Instructions Status Indications Reaction Description Data Source(s) Triamcinolone Acetonide 5 MG/ML Topical Cream Triamcin olone Acetonide 0.5 % Triamcinolone Acetonide 0.5 % 06/21/2020 12:00:00 AM EST 1.0 {appli cation} active Triamcinolone Acetonide 0 .5 % eCW1 ([facility]) Doxepin Hydrochloride 50 MG Oral Capsule Doxepin HCl 50 MG D oxepin HCl 50 MG 06/21/2020 12:00:00 AM EST active Doxepin HCl 50 MG eCW1 ([facility]) Doxepin Hydrochloride 50 MG Oral Capsule Doxepin HCl 50 MG D oxepin HCl 50 MG 12/01/2019 12:00:00 AM EDT active 1 cap eCW1 ([facility]) Triamcinolone Acetonide 5 MG/ML Topical Cream Triamcin olone Acetonide 0.5 % Triamcinolone Acetonide 0.5 % 12/01/2019 12:00:00 AM EDT active 1 application eCW1 ([facility]) levocetirizine dihydrochloride 5 MG Oral Tablet Levocetirizine Dihydrochloride 5 MG Levocetirizine Dihydrochloride 5 MG 12/01/2019 12:00:00 AM EDT active 1 tablet in the evening eCW1 ([facility]) Permethrin 50 MG/ML Topical Cream Permethrin 5 % Permethrin 5 % 11/18/2019 12:00:00 AM EDT active 1 applic ation eCW1 ([facility]) Insurance Providers Payer name Policy type / Coverage type Policy ID Covered alliance party ID Covered alliance party's relationship to preciado Policy Preciado Plan Information [facility] [id number] ANSI-Commercial [id number] ANSI-Commercial [id number] ANSI-Commercial [id number] ANSI-Commercial [id number] ANSI-Commercial [id number] ANSI-Commercial [id number] ANSI-Commercial [id number] ANSI-Commercial [id number] ANSI-Commercial [id number] ANSI-Commercial [id number] ANSI-Commercial [id number] ANSI-Commercial [id number] [facility] [id number] SP [id number] [facility] [id number] SP [id number] Surgeries/Procedures Procedure Description Date Indications Data Source(s) Immunization: Flublok Quadrivalent (18 years & older) 0.5mL IM (Influenza) 06/21/2020 12:00:00 AM EST eCW1 ([facility]) EKG- ALL NON MCR/TRI PAYERS 06/21/2019 12:00:00 AM EST eCW1 ([facility]) RIV4 VACC RECOMBINANT DNA IM 06/21/2019 12:00:00 AM ES T eCW1 ([facility]) IMMUNIZATION ADMIN 06/21/2019 12:00:00 AM EST eCW1 ([facility]) Social History Code Duration Value Status Description Data Source(s ) Smoking 06/21/2020 12:00:00 AM EST UNK completed eCW1 ([facility]) Vital Signs ID Date Data Source UNK Name Value Range Interpretation Code Description Data Source(s) Diastolic blood pressure 90 mm[Hg] 90 mm[Hg] eCW1 ([facility]) Systolic blood pressure 130 mm[Hg] 130 mm[Hg] e CW1 ([facility]) Body temperature 97.7 [degF] 97.7 [degF] eCW1 ( [facility]) Respiratory rate 18 /min 18 /min eCW1 ([facility]) Heart rate 97 /min 97 /min eCW1 ([facility]) Body mass index (BMI) [Ratio] 36.70 kg/m2 36.70 kg/m2 eCW1 ([facility]) Body height 73 [in_i] 73 [in_i] eCW1 ([facility]) Body weight 278.2 [lb_av] 278.2 [lb_av] eCW1 ([facility]) Diastolic blood pressure 78 mm[Hg] 78 mm[Hg] eCW1 ([facility]) Systolic blood pressure 130 mm[Hg] 130 mm[Hg] e CW1 ([facility]) Body temperature 98.7 [degF] 98.7 [degF] eCW1 ( [facility]) Respiratory rate 18 /min 18 /min eCW1 ([facility]) Heart rate 109 /min 109 /min eCW1 ([facility]) Body mass index (BMI) [Ratio] 35.28 kg/m2 35.28 kg/m2 eCW1 ([facility]) Body height 73 [in_us] 73 [in_us] eCW1 ([facility]) Body weight Measured 267.4 [lb_av] 267.4 [lb_av ] eCW1 ([facility]) Diastolic blood pressure 82 mm[Hg] 82 mm[Hg] eCW1 ([facility]) Systolic blood pressure 128 mm[Hg] 128 mm[Hg] e CW1 ([facility]) Body temperature 98.4 [degF] 98.4 [degF] eCW1 ( [facility]) Respiratory rate 18 /min 18 /min eCW1 ([facility]) Heart rate 98 /min 98 /min eCW1 ([facility]) Body mass index (BMI) [Ratio] 35.75 kg/m2 35.75 kg/m2 eCW1 ([facility]) Body height 73 [in_us] 73 [in_us] eCW1 ([facility]) Body weight Measured 271 [lb_av] 271 [lb_av] eC W1 ([facility]) Patient Treatment Plan of Care Planned Activity Planned Date Details Description Data Source (s) Doxepin Hydrochloride 50 MG Oral Capsule 06/21/2020 12:00:00 AM EST eCW1 ([facility]) Triamcinolone Acetonide 5 MG/ML Topical Cream 06/21/2020 12:00:00 A M EST eCW1 ([facility]) Doxepin Hydrochloride 50 MG Oral Capsule 12/01/2019 12:00:00 AM EDT eCW1 ([facility]) levocetirizine dihydrochloride 5 MG Oral Tablet 12/01/2019 12:00:00 AM EDT eCW1 ([facility]) Triamcinolone Acetonide 5 MG/ML Topical Cream 12/01/2019 12:00:00 A M EDT eCW1 ([facility]) Permethrin 50 MG/ML Topical Cream 11/18/2019 12:00:00 AM EDT eCW1 ([facility])
[2020-08-02 12:29] LABS: BASO % 0.1 % (0.0-1.0); HEMATOCRIT 44.4 % (42.0-52.0); HEMOGLOBIN 15.4 g/dl (13.5-17.5); LYMPH # 0.7 10^3/uL (1.5-5.0); LYMPH % 9.9 % (24.0-44.0); MEAN CORPUSCULAR HEMOGLOBIN 30.7 pg (27.0-33.0); MEAN CORPUSCULAR HGB CONC 34.7 g/dl (32.0-36.5); MEAN CORPUSCULAR VOLUME 88.4 fl (80.0-96.0); MONO # 0.4 10^3/uL (0.0-0.8); MONO % 5.2 % (0.0-5.0); NEUTROPHILS # 5.7 10^3/uL (1.5-8.5); NEUTROPHILS % 84.5 % (36.0-66.0); PLATELET COUNT, AUTOMATED 192 10^3/uL (150-450); RED BLOOD COUNT 5.02 10^6/uL (4.30-6.10); WHITE BLOOD COUNT 6.7 10^3/uL (4.0-10.0)
[2020-08-02] MEDS ORDERED: cefTRIAXone SOD 1 GM in D5W MINI-BAG PLUS 50 ML IV ONE (13:00)
[2020-08-02 13:02] LABS: BLOOD UREA NITROGEN 9 MG/DL (7-18); CALCIUM LEVEL 9.2 MG/DL (8.5-10.1); CARBON DIOXIDE LEVEL 25 MEQ/L (21-32); CHLORIDE LEVEL 103 MEQ/L (98-107); CK-MB VALUE MASS < 1.0 NG/ML (<3.6); CPK CREATINE PHOSPHOKINASE 157 U/L (39-308); CREATININE FOR GFR 0.89 MG/DL (0.70-1.30); GLOMERULAR FILTRATION RATE > 60.0 (>60); GLUCOSE, FASTING 101 MG/DL (70-100); MB/CK RELATIVE INDEX 0.64 (< OR =4); POTASSIUM SERUM 3.6 MEQ/L (3.5-5.1); SODIUM LEVEL 139 MEQ/L (136-145); TROPONIN I < 0.02 NG/ML (< 0.10)
[2020-08-02] MEDS ORDERED: AZIT-12 PO (14:06)
[2020-08-02 14:48] VITALS: BP 119/74
--- NOTE | 2020-08-03 20:49 | ECGEPIP ---
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
== END 2020-08-02 15:00 | disposition home or self-care (01) ==
LOC: M ED 10:11
DX: U07.1 COVID-19 (principal); J12.82 Pneumonia due to coronavirus disease 2019; I10 Essential (primary) hypertension; R00.0 Tachycardia, unspecified
CPT/HCPCS: 71045; 80048; 82550; 82553; 84484; 85025; 85379; 93005; 96361; 96365; 96366; 99284; J0696

== ENCOUNTER → 2020-12-19 | Outpatient (REF) | payer OTHER ==
[~2020-12-19] MED LIST changes: +ACET-897 PO; +ATOR1TAB21; +AZIT-12 PO; +DUO
[2020-12-19 11:54] LABS: BASO % 0.4 % (0.0-1.0); EOS # 0.4 10^3/uL (0.0-0.5); EOS % 5.4 % (0.0-3.0); HEMATOCRIT 49.1 % (42.0-52.0); HEMOGLOBIN 16.5 g/dl (13.5-17.5); LYMPH # 1.7 10^3/uL (1.5-5.0); LYMPH % 23.3 % (24.0-44.0); MEAN CORPUSCULAR HEMOGLOBIN 30.8 pg (27.0-33.0); MEAN CORPUSCULAR HGB CONC 33.6 g/dl (32.0-36.5); MEAN CORPUSCULAR VOLUME 91.6 fl (80.0-96.0); MONO # 0.5 10^3/uL (0.0-0.8); MONO % 7.1 % (2.0-8.0); NEUTROPHILS # 4.7 10^3/uL (1.5-8.5); NEUTROPHILS % 63.4 % (36.0-66.0); PLATELET COUNT, AUTOMATED 269 10^3/uL (150-450); RED BLOOD COUNT 5.36 10^6/uL (4.30-6.10); WHITE BLOOD COUNT 7.4 10^3/uL (4.0-10.0)
[2020-12-19 13:56] LABS: C REACTIVE PROTEIN QUANTITATIV < 0.30 MG/DL (0.00-0.30); CHOLESTEROL LEVEL 173 MG/DL (<200); CHOLESTEROL RISK RATIO 4.675 (<5); CPK CREATINE PHOSPHOKINASE 102 U/L (39-308); FREE T4 0.96 NG/DL (0.76-1.46); HDL CHOLESTEROL 37 MG/DL (>40); LDL CHOLESTEROL 70 MG/DL (<100); NON-HDL-C 136 MG/DL; TRIGLYCERIDES LEVEL 328 MG/DL (<150)
[2020-12-19 20:04] LABS: HEMOGLOBIN A1c 5.5 %
== END ==
LOC: M PLALAB 09:42
PROVIDERS: ATTEND Family Medicine
DX: I10 Essential (primary) hypertension (principal); E78.5 Hyperlipidemia, unspecified; R73.01 Impaired fasting glucose

== ENCOUNTER → 2021-01-10 | Outpatient (CLI) | payer OTHER ==
[2021-01-10 13:23] LABS: ALBUMIN 3.9 GM/DL (3.2-5.2); ALT/SGPT 99 U/L (12-78); BILIRUBIN,TOTAL 0.6 MG/DL (0.2-1.0); BLOOD UREA NITROGEN 13 MG/DL (7-18); CALCIUM LEVEL 8.8 MG/DL (8.5-10.1); CARBON DIOXIDE LEVEL 28 MEQ/L (21-32); CHLORIDE LEVEL 106 MEQ/L (98-107); FERRITIN 407 NG/ML (26-388); GLOMERULAR FILTRATION RATE > 60.0 (>60); GLUCOSE, FASTING 97 MG/DL (70-100); IRON (FE) 98 UG/DL (65-175); PERCENT SATURATION 29.3 % (19.7-50.0); POTASSIUM SERUM 4.2 MEQ/L (3.5-5.1); SODIUM LEVEL 137 MEQ/L (136-145); TOTAL IRON BINDING CAPACITY 335 UG/DL (250-450); TOTAL PROTEIN 7.1 GM/DL (6.4-8.2)
[2021-01-11 16:08] LABS: Lyme Disease IgG/IgM Antibodie <0.91 ISR (0.00-0.90); Lyme Disease IgM Ab Quantitati <0.80 index (0.00-0.79); TISSUE TRANSGLUTAMINASE IgA <2 U/mL (0-3)
== END ==
LOC: M PLALAB 10:25
PROVIDERS: ATTEND Family Medicine
DX: L29.9 Pruritus, unspecified (principal)

== ENCOUNTER → 2021-06-25 | Outpatient (CLI) | payer OTHER ==
[2021-06-25 11:42] LABS: INR 0.9; PROTHROMBIN TIME 12.6 SECONDS (12.7-14.5)
[2021-06-25 11:43] LABS: PARTIAL THROMBOPLASTIN TIME 29.4 SECONDS (25.9-37.0)
[2021-06-25 11:49] LABS: HEMOGLOBIN A1c 5.2 %
[2021-06-25 12:02] LABS: ALT/SGPT 102 U/L (12-78); BILIRUBIN,TOTAL 0.7 MG/DL (0.2-1.0); BLOOD UREA NITROGEN 13 MG/DL (7-18); CALCIUM LEVEL 9.6 MG/DL (8.5-10.1); CARBON DIOXIDE LEVEL 29 MEQ/L (21-32); CHLORIDE LEVEL 103 MEQ/L (98-107); CREATININE FOR GFR 0.84 MG/DL (0.70-1.30); FERRITIN 376 NG/ML (26-388); GLOMERULAR FILTRATION RATE > 60.0 (>60); GLUCOSE, FASTING 98 MG/DL (70-100); IRON (FE) 117 UG/DL (65-175); NT-PRO BNP 8 PG/ML (<125); PERCENT SATURATION 33.6 % (19.7-50.0); POTASSIUM SERUM 4.4 MEQ/L (3.5-5.1); SODIUM LEVEL 137 MEQ/L (136-145); TOTAL IRON BINDING CAPACITY 348 UG/DL (250-450); TOTAL PROTEIN 7.6 GM/DL (6.4-8.2)
[2021-06-25 12:09] LABS: PTH INTACT 50.7 PG/ML (18.5-88.0); TOTAL 25(OH) VITAMIN D 40.6 NG/ML (30.0-100.0)
[2021-06-25 12:49] LABS: HEPATITIS C VIRUS ABY INDEX 0.1 INDEX (<0.8)
[2021-06-26 14:08] LABS: INSULIN LEVEL 14.1 uIU/mL (2.6-24.9); Lyme Disease IgG/IgM Antibodie <0.91 ISR (0.00-0.90); Lyme Disease IgM Ab Quantitati <0.80 index (0.00-0.79)
== END ==
LOC: M PLALAB 08:02
PROVIDERS: ATTEND Family Medicine
DX: L29.9 Pruritus, unspecified (principal)

== ENCOUNTER → 2022-08-11 | Outpatient (REF) | payer OTHER ==
[2022-08-11 14:23] LABS: BASO # 0.1 10^3/uL (0.0-0.2); BASO % 0.7 % (0.0-1.0); EOS # 0.2 10^3/uL (0.0-0.5); EOS % 2.7 % (0.0-3.0); HEMATOCRIT 50.2 % (42.0-52.0); HEMOGLOBIN 16.8 g/dl (13.5-17.5); LYMPH % 23.9 % (24.0-44.0); MEAN CORPUSCULAR HEMOGLOBIN 31.2 pg (27.0-33.0); MEAN CORPUSCULAR HGB CONC 33.5 g/dl (32.0-36.5); MEAN CORPUSCULAR VOLUME 93.1 fl (80.0-96.0); MONO # 0.6 10^3/uL (0.0-0.8); MONO % 6.9 % (2.0-8.0); NEUTROPHILS # 5.6 10^3/uL (1.5-8.5); NEUTROPHILS % 65.3 % (36.0-66.0); PLATELET COUNT, AUTOMATED 303 10^3/uL (150-450); RED BLOOD COUNT 5.39 10^6/uL (4.30-6.10); WHITE BLOOD COUNT 8.5 10^3/uL (4.0-10.0)
[2022-08-11 14:24] LABS: ALBUMIN 4.2 G/DL (3.2-5.2); ALKALINE PHOSPHATASE 109 U/L (46-116); ALT/SGPT 97 U/L (7.0-40); AST/SGOT 42 U/L (<34); BILIRUBIN,TOTAL 0.7 MG/DL (0.3-1.2); BLOOD UREA NITROGEN 13 MG/DL (9-23); CALCIUM LEVEL 9.7 MG/DL (8.5-10.1); CARBON DIOXIDE LEVEL 28 MMOL/L (20-31); CHLORIDE LEVEL 100 MMOL/L (98-107); CREATININE FOR GFR 0.81 MG/DL (0.70-1.30); GLOMERULAR FILTRATION RATE > 60.0 (>60); GLUCOSE, FASTING 90 MG/DL (60-100); MAGNESIUM LEVEL 1.9 MG/DL (1.8-2.4); POTASSIUM SERUM 4.3 MMOL/L (3.5-5.1); SODIUM LEVEL 138 MMOL/L (136-145); TOTAL PROTEIN 7.7 G/DL (5.7-8.2)
[2022-08-11 14:28] LABS: FREE T4 1.25 NG/DL (0.89-1.76); THYROID STIMULATING HORMONE 2.081 uIU/ML (0.55-4.78)
== END ==
LOC: M SFHCADAM 08:52
PROVIDERS: ATTEND Physician Assistant
DX: F41.1 Generalized anxiety disorder (principal); I10 Essential (primary) hypertension

== ENCOUNTER → 2022-09-09 | Outpatient (CLI) | payer OTHER | LOC: M RAD 10:05 | PROVIDERS: ATTEND Physician Assistant | DX: R74.8 Abnormal levels of other serum enzymes (principal) ==

== ENCOUNTER → 2023-05-22 | Outpatient (REF) | payer OTHER ==
[2023-05-22 13:42] LABS: HEMOGLOBIN A1c 5.2 % (4.0-6.0)
[2023-05-22 13:49] LABS: FERRITIN 262.4 NG/ML (10.5-307.3)
[2023-05-22 13:50] LABS: TOTAL 25(OH) VITAMIN D 28.4 NG/ML (20.0-100.0)
[2023-05-22 13:51] LABS: VITAMIN B12 LEVEL 634 PG/ML (211-911)
[2023-05-22 13:53] LABS: ALKALINE PHOSPHATASE 93 U/L (46-116); ALT/SGPT 79 U/L (7.0-40); AST/SGOT 36 U/L (<34); BILIRUBIN,TOTAL 0.6 MG/DL (0.3-1.2); BLOOD UREA NITROGEN 13 MG/DL (9-23); CALCIUM LEVEL 9.3 MG/DL (8.5-10.1); CARBON DIOXIDE LEVEL 29 MMOL/L (20-31); CHLORIDE LEVEL 105 MMOL/L (98-107); CREATININE FOR GFR 0.79 MG/DL (0.70-1.30); GLOMERULAR FILTRATION RATE > 60.0 (>60); GLUCOSE, FASTING 82 MG/DL (60-100); POTASSIUM SERUM 4.3 MMOL/L (3.5-5.1); PTH INTACT 66.8 PG/ML (18.5-88.0); SODIUM LEVEL 141 MMOL/L (136-145); TOTAL PROTEIN 7.3 G/DL (5.7-8.2)
[2023-05-26 00:06] LABS: INSULIN LEVEL 15.1 uIU/mL (2.6-24.9)
== END ==
LOC: M LABDRWAD 12:27
PROVIDERS: ATTEND Family Medicine
DX: F10.99 Alcohol use, unspecified with unspecified alcohol-induced disorder (principal); E55.9 Vitamin D deficiency, unspecified; R73.01 Impaired fasting glucose

== ENCOUNTER → 2023-12-21 | Outpatient (CLI) | payer OTHER ==
[2023-12-21 13:25] LABS: BASO # 0.1 10^3/uL (0.0-0.2); BASO % 1.1 % (0.0-1.0); EOS # 0.2 10^3/uL (0.0-0.5); EOS % 3.2 % (0.0-3.0); HEMATOCRIT 47.7 % (42.0-52.0); HEMOGLOBIN 16.6 g/dl (13.5-17.5); LYMPH # 1.8 10^3/uL (1.5-5.0); LYMPH % 25.3 % (24.0-44.0); MEAN CORPUSCULAR HEMOGLOBIN 32.2 pg (27.0-33.0); MEAN CORPUSCULAR HGB CONC 34.8 g/dl (32.0-36.5); MEAN CORPUSCULAR VOLUME 92.4 fl (80.0-96.0); MONO # 0.6 10^3/uL (0.0-0.8); MONO % 7.9 % (2.0-8.0); NEUTROPHILS # 4.5 10^3/uL (1.5-8.5); NEUTROPHILS % 62.1 % (36.0-66.0); PLATELET COUNT, AUTOMATED 253 10^3/uL (150-450); RED BLOOD COUNT 5.16 10^6/uL (4.30-6.10); WHITE BLOOD COUNT 7.3 10^3/uL (4.0-10.0)
[2023-12-21 13:48] LABS: ALBUMIN 4.1 G/DL (3.2-5.2); ALKALINE PHOSPHATASE 105 U/L (46-116); ALT/SGPT 94 U/L (7.0-40); AST/SGOT 37 U/L (<34); BILIRUBIN,TOTAL 0.8 MG/DL (0.3-1.2); BLOOD UREA NITROGEN 12 MG/DL (9-23); CALCIUM LEVEL 10.1 MG/DL (8.5-10.1); CARBON DIOXIDE LEVEL 27 MMOL/L (20-31); CHLORIDE LEVEL 104 MMOL/L (98-107); CHOLESTEROL LEVEL 199 MG/DL (<200); CHOLESTEROL RISK RATIO 4.21 (<5); CREATININE FOR GFR 0.78 MG/DL (0.70-1.30); FREE T4 1.13 NG/DL (0.89-1.76); GLOMERULAR FILTRATION RATE > 60.0 (>60); GLUCOSE, FASTING 90 MG/DL (60-100); HDL CHOLESTEROL 47.2 MG/DL (>40); LDL CHOLESTEROL 83.6 MG/DL (<100); NON-HDL-C 151.8 MG/DL; POTASSIUM SERUM 4.1 MMOL/L (3.5-5.1); SODIUM LEVEL 139 MMOL/L (136-145); TOTAL PROTEIN 7.4 G/DL (5.7-8.2); TRIGLYCERIDES LEVEL 341 MG/DL (<150)
[2023-12-21 13:49] LABS: FERRITIN 380.9 NG/ML (10.5-307.3); THYROID STIMULATING HORMONE 1.552 uIU/ML (0.55-4.78)
== END ==
LOC: M PLALAB 11:28
PROVIDERS: ATTEND Family Medicine
DX: I10 Essential (primary) hypertension (principal); E78.5 Hyperlipidemia, unspecified

== ENCOUNTER → 2024-09-21 | Outpatient (CLI) | payer OTHER ==
[2024-09-21 11:06] LABS: BASO # 0.1 10^3/uL (0.0-0.2); BASO % 0.8 % (0.0-1.0); EOS # 0.3 10^3/uL (0.0-0.5); EOS % 4.5 % (0.0-3.0); HEMATOCRIT 50.7 % (42.0-52.0); HEMOGLOBIN 17.7 g/dl (13.5-17.5); LYMPH # 1.7 10^3/uL (1.5-5.0); LYMPH % 23.7 % (24.0-44.0); MEAN CORPUSCULAR HEMOGLOBIN 31.8 pg (27.0-33.0); MEAN CORPUSCULAR HGB CONC 34.9 g/dl (32.0-36.5); MONO # 0.7 10^3/uL (0.0-0.8); MONO % 8.9 % (2.0-8.0); NEUTROPHILS # 4.5 10^3/uL (1.5-8.5); NEUTROPHILS % 61.7 % (36.0-66.0); PLATELET COUNT, AUTOMATED 273 10^3/uL (150-450); RED BLOOD COUNT 5.57 10^6/uL (4.30-6.10); WHITE BLOOD COUNT 7.3 10^3/uL (4.0-10.0)
[2024-09-21 11:22] LABS: ALBUMIN 4.2 G/DL (3.2-5.2); ALKALINE PHOSPHATASE 113 U/L (40-129); ALT/SGPT 104 U/L (7.0-40); AST/SGOT 47 U/L (<34); BILIRUBIN,TOTAL 0.7 MG/DL (0.3-1.2); BLOOD UREA NITROGEN 11 MG/DL (9-23); CALCIUM LEVEL 9.7 MG/DL (8.5-10.1); CARBON DIOXIDE LEVEL 29 MMOL/L (20-31); CHLORIDE LEVEL 104 MMOL/L (98-107); CREATININE FOR GFR 0.73 MG/DL (0.70-1.30); GLOMERULAR FILTRATION RATE > 60.0 (>60); GLUCOSE, FASTING 93 MG/DL (60-100); MAGNESIUM LEVEL 2.1 MG/DL (1.8-2.4); POTASSIUM SERUM 4.3 MMOL/L (3.5-5.1); SODIUM LEVEL 140 MMOL/L (136-145); TOTAL PROTEIN 7.8 G/DL (5.7-8.2)
[2024-09-21 11:23] LABS: PTH INTACT 70.3 PG/ML (18.5-88.0)
[2024-09-21 11:24] LABS: TOTAL 25(OH) VITAMIN D 43.6 NG/ML (20.0-100.0)
[2024-09-21 11:30] LABS: HEMOGLOBIN A1c 5.3 % (4.0-6.0)
== END ==
LOC: M PLALAB 09:24
PROVIDERS: ATTEND Family Medicine
DX: I10 Essential (primary) hypertension (principal)

== ENCOUNTER → 2025-03-09 | Outpatient (REF) | payer OTHER ==
[~2025-03-09] MED LIST changes: +LISI40TA10 PO; -LISI40TA4 PO
[2025-03-09 13:32] LABS: ALT/SGPT 112 U/L (7.0-40); AST/SGOT 57 U/L (<34); CALCIUM LEVEL 9.3 MG/DL (8.5-10.1); CARBON DIOXIDE LEVEL 27 MMOL/L (20-31); CHLORIDE LEVEL 102 MMOL/L (98-107); CHOLESTEROL LEVEL 194 MG/DL (<200); CHOLESTEROL RISK RATIO 4.57 (<5); CREATININE FOR GFR 0.77 MG/DL (0.70-1.30); GLOMERULAR FILTRATION RATE > 90.0 (>60); IRON (FE) 151 UG/DL (65-175); LDL CHOLESTEROL 81.2 MG/DL (<100); MAGNESIUM LEVEL 2.0 MG/DL (1.8-2.4); NON-HDL-C 151.6 MG/DL; PERCENT SATURATION 45.8 % (19.7-50.0); POTASSIUM SERUM 4.3 MMOL/L (3.5-5.1); PTH INTACT 53.8 PG/ML (18.5-88.0); SODIUM LEVEL 142 MMOL/L (136-145); TRIGLYCERIDES LEVEL 352 MG/DL (<150)
[2025-03-09 13:34] LABS: TOTAL 25(OH) VITAMIN D 31.3 NG/ML (20.0-100.0)
[2025-03-09 13:36] LABS: BASO # 0.1 10^3/uL (0.0-0.2); BASO % 0.9 % (0.0-1.0); EOS # 0.5 10^3/uL (0.0-0.5); EOS % 6.4 % (0.0-3.0); LYMPH # 1.7 10^3/uL (1.5-5.0); LYMPH % 23.9 % (24.0-44.0); MONO # 0.7 10^3/uL (0.0-0.8); MONO % 9.5 % (2.0-8.0); NEUTROPHILS # 4.1 10^3/uL (1.5-8.5); NEUTROPHILS % 58.9 % (36.0-66.0); PLATELET COUNT, AUTOMATED 263 10^3/uL (150-450)
[2025-03-09 13:51] LABS: ESTIMATED AVERAGE GLUCOSE 111.0 MG/DL (60-110)
[2025-03-10 13:10] LABS: ERYTHROPOIETIN 6.3 mIU/mL (2.6-18.5)
[2025-03-11 11:18] LABS: INSULIN LEVEL 25.2 uIU/mL (<=18.4)
[2025-03-16 01:12] LABS: ENHANCED LIVER FIBROSIS SCORE 9.19 (<9.80)
== END ==
LOC: M SFHCPLAZ 09:53
PROVIDERS: ATTEND Family Medicine
DX: I10 Essential (primary) hypertension (principal); R73.01 Impaired fasting glucose; E55.9 Vitamin D deficiency, unspecified; K70.0 Alcoholic fatty liver; E78.5 Hyperlipidemia, unspecified; D75.1 Secondary polycythemia

== ENCOUNTER → 2025-03-10 | Outpatient (REF) | payer OTHER | LOC: M SFHCADAM 11:57 | PROVIDERS: ATTEND Family Medicine | DX: D75.1 Secondary polycythemia (principal); R79.89 Other specified abnormal findings of blood chemistry ==